=== PATIENT | male | born 2000 | race African-American/Black ===

== ENCOUNTER 2024-11-03 17:57 | Emergency (ER) | payer SELFPAY ==
[~2024-11-03] VITALS: Ht 175.3 cm; Wt 92.6 kg
[2024-11-03] MEDS: IBUPROFEN 600MG TAB PO ONE (20:42)
[2024-11-03 21:09] VITALS: BP 138/87; TEMP 98.8; O2SAT 97
== END 2024-11-03 21:16 | disposition home or self-care (01) ==
LOC: M ED 17:57
DX: M25.562 Pain in left knee (principal); M25.462 Effusion, left knee; X50.0XXA Overexertion from strenuous movement or load, initial encounter; G43.909 Migraine, unspecified, not intractable, without status migrainosus; Y92.9 Unspecified place or not applicable; Y93.02 Activity, running; Y99.9 Unspecified external cause status

== ENCOUNTER 2025-04-12 10:26 | Emergency (ER) | payer OTHER ==
[~2025-04-12] VITALS: Ht 175.3 cm; Wt 100.8 kg
[2025-04-12] MEDS: FLUORESCEIN OPHTH 1 MG STRIP OD ONE (11:30)
[2025-04-12] MEDS: TETRACAINE 0.5% OPHTH SOLN 4ML OD ONE (11:30)
[2025-04-12] MEDS ORDERED: ERYT5OIN25 OP (11:55)
[2025-04-12] MEDS: ERYTHROMYCIN OPHTH OINT OD ONE (12:10)
[2025-04-12 12:19] VITALS: BP 141/82; TEMP 97.2; O2SAT 98
== END 2025-04-12 12:35 | disposition home or self-care (01) ==
LOC: M ED 10:26
DX: H11.31 Conjunctival hemorrhage, right eye (principal); S05.01XA Injury of conjunctiva and corneal abrasion without foreign body, right eye, initial encounter; Z79.1 Long term (current) use of non-steroidal anti-inflammatories (NSAID); Y92.9 Unspecified place or not applicable; Y93.89 Activity, other specified; Y99.9 Unspecified external cause status

== ENCOUNTER 2025-06-12 10:11 | Emergency (ER) | payer OTHER ==
[~2025-06-12] VITALS: Ht 175.3 cm; Wt 108.5 kg
[~2025-06-12 10:11] MED LIST: ERYT5OIN25 OP
[2025-06-12] MEDS: NS 500 ML IV ONE (12:40)
[2025-06-12] MEDS: MAG SULF 1GM/100ML (MAG RUN) 1 GM in IV 1 EA IV ONE (12:40)
[2025-06-12] MEDS: ACETAMINOPHEN *IV* 1,000 MG in IV 1 EA IV ONE (12:40)
[2025-06-12] MEDS: KETOROLAC 30 MG/ML 1 ML VIAL IV ONE (12:40)
[2025-06-12 12:53] VITALS: BP 121/70; TEMP 98.3; O2SAT 98
== END 2025-06-12 12:55 | disposition home or self-care (01) ==
LOC: M ED 10:11
DX: G43.909 Migraine, unspecified, not intractable, without status migrainosus (principal); M54.2 Cervicalgia; J00 Acute nasopharyngitis [common cold]